=== PATIENT | male | born 1960 | race African-American/Black ===

== ENCOUNTER 2019-03-13 10:56 | Emergency (ER) | payer OTHER ==
[~2019-03-13] VITALS: Ht 172.7 cm; Wt 56.0 kg
[~2019-03-13 10:56] MED LIST: DIAZ5TAB4 PO; QUET25TA PO; RISP0.5T19 PO; TRAZ-251 PO
[2019-03-13 12:48] LABS: BASOPHILS % 0.9 % (0.0-2.0); EOSINOPHILS % 1.1 % (0.0-5.0); HEMATOCRIT. 36.1 % (42.0-52.0); HEMOGLOBIN. 12.3 g/dL (14.0-18.0); LYMPHOCYTES % 23.4 % (20.0-50.0); MEAN CORPUSCULAR HEMOGLOBIN 33.3 pg (28.0-32.0); MEAN CORPUSCULAR VOLUME 97.5 fL (80.0-94.0); MEAN PLATELET VOLUME 8.7 fl (7.4-10.4); MONOCYTES % 6.7 % (2.0-8.0); NEUTROPHILS % 67.9 % (40.0-76.0); PLATELET 175 x1000/uL (130-400); RED CELL DISTRIBUTION WIDTH 14.1 % (11.6-14.6)
[2019-03-13 12:55] LABS: CHLORIDE 112 mEq/L (98-107)
[2019-03-13 15:32] VITALS: BP 120/81
[2019-03-13] MEDS ORDERED: IOHEXOL-300 100 ML BOTTLE ONE (16:01)
== END 2019-03-13 19:22 | disposition home or self-care (01) ==
LOC: ER 10:56
DX: R22.1 Localized swelling, mass and lump, neck (principal); F31.9 Bipolar disorder, unspecified; F20.9 Schizophrenia, unspecified; Z79.899 Other long term (current) drug therapy
CPT/HCPCS: 36415; 70491; 80048; 85025; 99284; Q9967; Z7610

== ENCOUNTER 2019-07-31 12:05 | Inpatient (IN) | payer OTHER ==
[~2019-07-31] VITALS: Ht 175.3 cm; Wt 49.9 kg
[2019-07-31] MEDS ORDERED: SODIUM CHLORIDE 0.9% 1,000 ML IV ONE ×2 (12:30→13:24)
[2019-07-31] MEDS ORDERED: ONDANSETRON HCL 4MG/2ML INJ IV STA (12:30)
[2019-07-31 13:04] LABS: HEMATOCRIT. 30.7 % (42.0-52.0); HEMOGLOBIN. 9.9 g/dL (14.0-18.0); MEAN CORPUSCULAR HEMOGLOBIN 27.1 pg (28.0-32.0); MEAN CORPUSCULAR VOLUME 84.5 fL (80.0-94.0); MEAN PLATELET VOLUME 8.5 fl (7.4-10.4); PLATELET 287 x1000/uL (130-400); RED BLOOD CELL COUNT 3.63 mill/uL (4.7-6.1); RED CELL DISTRIBUTION WIDTH 17.2 % (11.6-14.6)
[2019-07-31 13:07] LABS: CHLORIDE 105 mEq/L (98-107)
[2019-07-31 13:22] LABS: INR 1.1; PROTHROMBIN TIME 11.9 sec (9.6-11.0)
[2019-07-31] MEDS ORDERED: VANCOMYCIN 1 G PREMIX 200 ML IV ONE (14:00)
[2019-07-31] MEDS ORDERED: PIPERACILLIN/TAZ 3.375G PREMIX 50 ML IV ONE (14:00)
[2019-07-31] MEDS: SODIUM CHLORIDE 0.45% 1,000 ML IV SCH (14:15)
[2019-07-31] MEDS ORDERED: ACETAMINOPHEN 325MG TABLET PO PRN (14:15)
[2019-07-31] MEDS ORDERED: IPRATROPIUM BROMIDE (0.02%) 0.5MG/2.5ML NEB HHN PRN (14:15)
[2019-07-31 14:23] LABS: NUCLEATED RED BLOOD CELLS 3 /100 WBC; PLATELET ESTIMATE NORMAL
[2019-07-31] MEDS: ONDANSETRON HCL 4MG/2ML INJ IV PRN (15:01)
[2019-07-31 16:15] VITALS: BP 104/72
[2019-07-31 17:56] VITALS: BP 104/72
[2019-07-31] MEDS: CEFTRIAXONE 1 G PREMIX 50 ML IV SCH (18:51)
[2019-07-31] MEDS: VISCOUS LIDOCAINE 2% 15 ML UDC MM PRN (20:02)
[2019-07-31 20:45] VITALS: BP 109/71
[2019-07-31] MEDS: QUETIAPINE FUMARATE 50MG TABLET PO SCH (22:46)
[2019-08-01 00:26] VITALS: BP 112/73
[2019-08-01] MEDS: SODIUM CHLORIDE 0.45% 1,000 ML IV SCH ×2 (02:38→16:55)
[2019-08-01] MEDS: ONDANSETRON HCL 4MG/2ML INJ IV PRN ×3 (03:02→19:02)
[2019-08-01] MEDS: VISCOUS LIDOCAINE 2% 15 ML UDC MM PRN ×2 (03:59→18:21)
[2019-08-01 04:00] VITALS: BP 100/58
[2019-08-01 06:43] LABS: CHLORIDE 111 mEq/L (98-107)
[2019-08-01 07:45] VITALS: BP 110/72
[2019-08-01] MEDS: QUETIAPINE FUMARATE 50MG TABLET PO SCH (08:09)
[2019-08-01 08:36] LABS: HEMATOCRIT. 27.9 % (42.0-52.0); MEAN CORPUSCULAR HEMOGLOBIN 27.4 pg (28.0-32.0); MEAN PLATELET VOLUME 9.1 fl (7.4-10.4); PLATELET 269 x1000/uL (130-400); RED BLOOD CELL COUNT 3.28 mill/uL (4.7-6.1); RED CELL DISTRIBUTION WIDTH 17.7 % (11.6-14.6)
[2019-08-01] MEDS ORDERED: BARIUM SULFATE 176 GM SUSP.RECON ONE (10:28)
[2019-08-01] MEDS ORDERED: POTASSIUM CHLORIDE INJ 40 MEQ in DEXT 5% WATER 250 ML IV NR (10:30)
[2019-08-01 10:59] LABS: NUCLEATED RED BLOOD CELLS 1 /100 WBC; PLATELET ESTIMATE NORMAL
[2019-08-01 15:35] LABS: CLARITY URINE CLEAR (CLEAR); COLOR URINE DK YELLOW (YELLOW); KETONES URINE TRACE (NEGATIVE); LEUKOCYTE ESTERASE URINE NEGATIVE (NEGATIVE); NITRITE URINE NEGATIVE (NEGATIVE); OCCULT BLOOD URINE NEGATIVE (NEGATIVE); PROTEIN URINE 2+ (NEGATIVE); SPECIFIC GRAVITY URINE 1.023 (1.005-1.030)
[2019-08-01 15:36] VITALS: BP 108/70
[2019-08-01 15:42] LABS: *AMPHETAMINES SCREEN URINE NEGATIVE (NEGATIVE); *BARBITURATES SCREEN URINE NEGATIVE (NEGATIVE); *BENZODIAZEPINES SCREEN URINE NEGATIVE (NEGATIVE); *COCAINE SCREEN URINE NEGATIVE (NEGATIVE); METHADONE URINE SCREEN NEGATIVE (NEGATIVE); OPIATES URINE SCREEN NEGATIVE (NEGATIVE)
[2019-08-01 15:43] LABS: CANNABINOID URINE SCREEN NEGATIVE (NEGATIVE); PHENCYCLIDINE URINE SCREEN NEGATIVE (NEGATIVE)
[2019-08-01] MEDS: CEFTRIAXONE 1 G PREMIX 50 ML IV SCH (17:51)
[2019-08-01 20:00] VITALS: BP 103/64
[2019-08-01] MEDS: PANTOPRAZOLE SODIUM 40 MG/VIAL IV SCH (21:42)
[2019-08-02] MEDS: MORPHINE SULFATE 2 MG/ML CPJ (NOT FOR IM USE) IV PRN ×2 (00:30→15:38)
[2019-08-02 00:46] VITALS: BP 105/69
[2019-08-02] MEDS: METRONIDAZOLE 500 MG PREMIX 100 ML IV SCH ×3 (03:08→18:32)
[2019-08-02] MEDS: DEXT 5% WATER + KCL 20MEQ/L 1,000 ML IV SCH ×3 (03:08→18:00)
[2019-08-02 04:00] VITALS: BP 107/67
[2019-08-02 06:55] LABS: HEMATOCRIT. 27.9 % (42.0-52.0); HEMOGLOBIN. 8.9 g/dL (14.0-18.0); MEAN CORPUSCULAR HEMOGLOBIN 27.2 pg (28.0-32.0); MEAN CORPUSCULAR VOLUME 85.7 fL (80.0-94.0); MEAN PLATELET VOLUME 9.6 fl (7.4-10.4); PLATELET 258 x1000/uL (130-400); RED BLOOD CELL COUNT 3.26 mill/uL (4.7-6.1); RED CELL DISTRIBUTION WIDTH 17.6 % (11.6-14.6)
[2019-08-02 07:26] LABS: FOLIC ACID (FOLATE) SERUM 7.7 ng/mL (>5.38)
[2019-08-02 07:58] LABS: CHLORIDE 115 mEq/L (98-107)
[2019-08-02 08:04] LABS: TOTAL IRON BINDING CAPACITY 146 ug/dL (250-450)
[2019-08-02 08:10] VITALS: BP 109/71
[2019-08-02] MEDS: DEXTROSE 5% WATER 1,000 ML IV SCH (08:41)
[2019-08-02] MEDS: QUETIAPINE FUMARATE 50MG TABLET PO SCH (08:41)
[2019-08-02] MEDS: PANTOPRAZOLE SODIUM 40 MG/VIAL IV SCH ×2 (08:48→20:58)
[2019-08-02] MEDS ORDERED: FENTANYL CITRATE/PF 50MCG/ML 2ML VIAL IV PRN (09:57)
[2019-08-02] MEDS ORDERED: MIDAZOLAM HCL 5 MG/5 ML VIAL IV PRN (09:57)
[2019-08-02] MEDS ORDERED: FENTANYL CITRATE/PF 50MCG/ML 2ML VIAL ONE (09:57)
[2019-08-02] MEDS ORDERED: MIDAZOLAM HCL 5 MG/5 ML VIAL ONE (09:57)
[2019-08-02] MEDS ORDERED: DIAZEPAM 5 MG/ML 2ML CPJ ONE ×2 (10:13→10:33)
[2019-08-02] MEDS ORDERED: DIPHENHYDRAMINE 50MG/ML VIAL ONE (10:24)
[2019-08-02] MEDS ORDERED: DIPHENHYDRAMINE 50MG/ML VIAL IV PRN (10:24)
[2019-08-02] MEDS ORDERED: DIAZEPAM 5 MG/ML 2ML CPJ IV PRN (10:33)
[2019-08-02 12:24] VITALS: BP 103/59
[2019-08-02] MEDS ORDERED: ONDANSETRON HCL 4MG/2ML INJ IV PRN ×2 (12:30)
[2019-08-02 12:59] LABS: PLATELET ESTIMATE NORMAL
[2019-08-02] MEDS: METOCLOPRAMIDE HCL 10MG/2ML VIAL IV SCH ×2 (13:24→18:35)
[2019-08-02 16:08] VITALS: BP 108/75
[2019-08-02] MEDS: CEFTRIAXONE 1 G PREMIX 50 ML IV SCH (16:13)
[2019-08-02] MEDS: SUCRALFATE 1 G/10 ML UDC GT SCH ×2 (17:22→20:58)
[2019-08-02] MEDS ORDERED: METOCLOPRAMIDE HCL 10MG/2ML VIAL IV SCH (18:00)
[2019-08-02] MEDS ORDERED: DIATR MEGLU/DIATRIZOATE SOLN 30ML PO SCH ×2 (18:00→18:15)
[2019-08-02 20:00] VITALS: BP 91/64
[2019-08-02] MEDS ORDERED: IOHEXOL-300 100 ML BOTTLE ONE (22:19)
[2019-08-03] VITALS: BP 92/58
[2019-08-03] MEDS: METOCLOPRAMIDE HCL 10MG/2ML VIAL IV SCH ×4 (01:07→17:07)
[2019-08-03] MEDS: DEXTROSE 5% WATER 1,000 ML IV SCH ×2 (01:08→17:08)
[2019-08-03] MEDS: METRONIDAZOLE 500 MG PREMIX 100 ML IV SCH ×3 (02:55→17:08)
[2019-08-03 04:00] VITALS: BP 98/64
[2019-08-03] MEDS: SUCRALFATE 1 G/10 ML UDC GT SCH ×4 (06:39→21:59)
[2019-08-03 07:36] LABS: CHLORIDE 110 mEq/L (98-107)
[2019-08-03 07:38] LABS: HEMATOCRIT. 27.1 % (42.0-52.0); HEMOGLOBIN. 8.8 g/dL (14.0-18.0); MEAN CORPUSCULAR HEMOGLOBIN 27.8 pg (28.0-32.0); MEAN CORPUSCULAR VOLUME 85.5 fL (80.0-94.0); MEAN PLATELET VOLUME 9.7 fl (7.4-10.4); PLATELET 217 x1000/uL (130-400); RED BLOOD CELL COUNT 3.17 mill/uL (4.7-6.1); RED CELL DISTRIBUTION WIDTH 17.1 % (11.6-14.6)
[2019-08-03 08:00] VITALS: BP 104/60
[2019-08-03] MEDS ORDERED: PANTOPRAZOLE SODIUM 40 MG/VIAL IV SCH (09:00)
[2019-08-03] MEDS: QUETIAPINE FUMARATE 50MG TABLET PO SCH (09:02)
[2019-08-03] MEDS: FAMOTIDINE 20MG/2ML VIAL IV SCH ×2 (09:02→21:59)
[2019-08-03 09:08] LABS: KAPPA LT CHAINS FREE SERUM 47.2 mg/L (3.3-19.4); KAPPA/LAMBDA RATIO 1.26 (0.26-1.65); LAMBDA LT CHAINS FREE SERUM 37.4 mg/L (5.7-26.3)
[2019-08-03 12:00] VITALS: BP 94/55
[2019-08-03] MEDS: CEFTRIAXONE 1 G PREMIX 50 ML IV SCH (13:49)
[2019-08-03 16:00] VITALS: BP 98/46
[2019-08-04] VITALS: BP 93/54
[2019-08-04] MEDS: METOCLOPRAMIDE HCL 10MG/2ML VIAL IV SCH ×4 (00:22→17:36)
[2019-08-04] MEDS: METRONIDAZOLE 500 MG PREMIX 100 ML IV SCH ×3 (02:36→17:37)
[2019-08-04 04:00] VITALS: BP 89/59
[2019-08-04 06:29] LABS: HEMATOCRIT. 25.8 % (42.0-52.0); HEMOGLOBIN. 8.3 g/dL (14.0-18.0); MEAN CORPUSCULAR HEMOGLOBIN 27.1 pg (28.0-32.0); MEAN CORPUSCULAR VOLUME 83.9 fL (80.0-94.0); MEAN PLATELET VOLUME 9.4 fl (7.4-10.4); PLATELET 215 x1000/uL (130-400); RED BLOOD CELL COUNT 3.08 mill/uL (4.7-6.1); RED CELL DISTRIBUTION WIDTH 17.3 % (11.6-14.6)
[2019-08-04] MEDS: SUCRALFATE 1 G/10 ML UDC GT SCH ×4 (06:34→21:10)
[2019-08-04 06:56] LABS: CHLORIDE 109 mEq/L (98-107)
[2019-08-04 08:00] VITALS: BP 90/50
[2019-08-04 08:55] LABS: ATYPICAL LYMPHOCYTES 1; NUCLEATED RED BLOOD CELLS 1 /100 WBC; PLATELET ESTIMATE NORMAL
[2019-08-04] MEDS: QUETIAPINE FUMARATE 50MG TABLET PO SCH (09:08)
[2019-08-04] MEDS: FAMOTIDINE 20MG/2ML VIAL IV SCH ×2 (09:08→21:10)
[2019-08-04] MEDS: DEXTROSE 5% WATER 1,000 ML IV SCH ×2 (09:09→17:38)
[2019-08-04 09:36] LABS: PLATELET ESTIMATE NORMAL
[2019-08-04 12:00] VITALS: BP 96/50
[2019-08-04] MEDS ORDERED: POTASSIUM CHLORIDE 20MEQ TABLET SR PO SCH (12:00)
[2019-08-04] MEDS ORDERED: POTASSIUM CHLORIDE INJ 40 MEQ in DEXT 5% WATER 250 ML IV SCH (13:00)
[2019-08-04] MEDS: CEFTRIAXONE 1 G PREMIX 50 ML IV SCH (13:01)
[2019-08-04] MEDS: MORPHINE SULFATE 2 MG/ML CPJ (NOT FOR IM USE) IV PRN (14:50)
[2019-08-04 16:00] VITALS: BP 98/47
[2019-08-04 20:00] VITALS: BP 94/54
[2019-08-05] VITALS: BP 87/52
[2019-08-05] MEDS: METOCLOPRAMIDE HCL 10MG/2ML VIAL IV SCH ×5 (00:58→23:00)
[2019-08-05] MEDS: METRONIDAZOLE 500 MG PREMIX 100 ML IV SCH ×3 (01:14→17:01)
[2019-08-05 04:00] VITALS: BP 88/55
[2019-08-05] MEDS: DEXTROSE 5% WATER 1,000 ML IV SCH (05:47)
[2019-08-05] MEDS: SUCRALFATE 1 G/10 ML UDC GT SCH ×4 (05:47→22:43)
[2019-08-05 07:46] LABS: CHLORIDE 108 mEq/L (98-107)
[2019-08-05 08:00] VITALS: BP 83/44
[2019-08-05 08:36] LABS: HEMOGLOBIN. 7.8 g/dL (14.0-18.0); MEAN CORPUSCULAR HEMOGLOBIN 27.4 pg (28.0-32.0); MEAN CORPUSCULAR VOLUME 84.1 fL (80.0-94.0); MEAN PLATELET VOLUME 9.2 fl (7.4-10.4); PLATELET 202 x1000/uL (130-400); RED BLOOD CELL COUNT 2.85 mill/uL (4.7-6.1); RED CELL DISTRIBUTION WIDTH 17.3 % (11.6-14.6)
[2019-08-05 09:06] LABS: A/G RATIO 0.5 (0.7-1.7); ALBUMIN 2.5 g/dL (2.9-4.4); ALPHA-1-GLOBULIN 0.6 g/dL (0.0-0.4); ALPHA-2-GLOBULIN 1.3 g/dL (0.4-1.0); BETA GLOBULIN 1.5 g/dL (0.7-1.3); GAMMA GLOBULINS 1.7 g/dL (0.4-1.8); GLOBULIN TOTAL 5.1 g/dL (2.2-3.9); M-SPIKE Not Observed g/dL (Not Observed); TOTAL PROTEIN SERUM 7.6 g/dL (6.0-8.5)
[2019-08-05] MEDS: QUETIAPINE FUMARATE 50MG TABLET PO SCH (10:15)
[2019-08-05] MEDS: FAMOTIDINE 20MG/2ML VIAL IV SCH ×2 (10:15→22:43)
[2019-08-05] MEDS ORDERED: POTASSIUM CHLORIDE 20MEQ TABLET SR PO NR (11:15)
[2019-08-05 12:00] VITALS: BP 90/58
[2019-08-05] MEDS: MIDODRINE HCL 5MG TABLET PO SCH ×3 (12:22→17:00)
[2019-08-05 13:06] LABS: BETA-2 MICROGLOBULIN SERUM 2.3 mg/L (0.6-2.4)
[2019-08-05 14:13] LABS: PLATELET ESTIMATE NORMAL
[2019-08-05] MEDS: CEFTRIAXONE 1 G PREMIX 50 ML IV SCH (14:21)
[2019-08-05 16:00] VITALS: BP 92/51
[2019-08-05 20:00] VITALS: BP 88/54
[2019-08-06] VITALS: BP 90/50
[2019-08-06] MEDS: METRONIDAZOLE 500MG TABLET PO SCH ×3 (02:59→18:18)
[2019-08-06 04:00] VITALS: BP 84/59
[2019-08-06] MEDS: METOCLOPRAMIDE HCL 10MG/2ML VIAL IV SCH ×3 (04:55→18:18)
[2019-08-06] MEDS: SUCRALFATE 1 G/10 ML UDC GT SCH ×4 (04:56→21:15)
[2019-08-06 06:03] LABS: CHLORIDE 105 mEq/L (98-107)
[2019-08-06 06:05] LABS: BASOPHILS % 0.5 % (0.0-2.0); HEMATOCRIT. 23.2 % (42.0-52.0); HEMOGLOBIN. 7.6 g/dL (14.0-18.0); MEAN CORPUSCULAR HEMOGLOBIN 27.2 pg (28.0-32.0); MEAN CORPUSCULAR VOLUME 83.3 fL (80.0-94.0); MEAN PLATELET VOLUME 9.5 fl (7.4-10.4); MONOCYTES % 11.1 % (2.0-8.0); NEUTROPHILS % 78.4 % (40.0-76.0); PLATELET 207 x1000/uL (130-400); RED BLOOD CELL COUNT 2.79 mill/uL (4.7-6.1); RED CELL DISTRIBUTION WIDTH 17.2 % (11.6-14.6)
[2019-08-06 08:00] VITALS: BP 88/50
[2019-08-06] MEDS ORDERED: POTASSIUM CHLORIDE 20MEQ TABLET SR PO NR (08:00)
[2019-08-06] MEDS: MIDODRINE HCL 5MG TABLET PO SCH ×4 (09:39→21:18)
[2019-08-06] MEDS: FAMOTIDINE 20MG/2ML VIAL IV SCH ×2 (09:39→21:16)
[2019-08-06] MEDS: QUETIAPINE FUMARATE 50MG TABLET PO SCH (09:40)
[2019-08-06 12:00] VITALS: BP 84/49
[2019-08-06] MEDS: CEFTRIAXONE 1 G PREMIX 50 ML IV SCH (13:05)
[2019-08-06 16:00] VITALS: BP 92/47
[2019-08-06 20:00] VITALS: BP 92/51
[2019-08-07] VITALS: BP 90/57
[2019-08-07] MEDS: METRONIDAZOLE 500MG TABLET PO SCH ×3 (02:12→17:37)
[2019-08-07] MEDS: METOCLOPRAMIDE HCL 10MG/2ML VIAL IV SCH ×5 (02:12→23:48)
[2019-08-07 04:00] VITALS: BP 90/51
[2019-08-07 06:21] LABS: CHLORIDE 104 mEq/L (98-107)
[2019-08-07 06:24] LABS: HEMATOCRIT. 23.2 % (42.0-52.0); HEMOGLOBIN. 7.5 g/dL (14.0-18.0); MEAN CORPUSCULAR VOLUME 82.9 fL (80.0-94.0); MEAN PLATELET VOLUME 9.9 fl (7.4-10.4); PLATELET 223 x1000/uL (130-400); RED BLOOD CELL COUNT 2.79 mill/uL (4.7-6.1); RED CELL DISTRIBUTION WIDTH 17.3 % (11.6-14.6)
[2019-08-07] MEDS: MIDODRINE HCL 5MG TABLET PO SCH ×3 (06:24→21:31)
[2019-08-07] MEDS: SUCRALFATE 1 G/10 ML UDC GT SCH ×4 (06:25→21:28)
[2019-08-07 08:00] VITALS: BP 160/68
[2019-08-07] MEDS: FAMOTIDINE 20MG/2ML VIAL IV SCH ×2 (08:35→21:28)
[2019-08-07] MEDS: THIAMINE HCL 100MG TABLET PO SCH (08:35)
[2019-08-07] MEDS: QUETIAPINE FUMARATE 50MG TABLET PO SCH (08:35)
[2019-08-07 08:57] LABS: PLATELET ESTIMATE NORMAL
[2019-08-07 12:00] VITALS: BP 109/68
[2019-08-07] MEDS ORDERED: POTASSIUM CHLORIDE 20MEQ TABLET SR PO NR (12:45)
[2019-08-07 16:00] VITALS: BP 90/52
[2019-08-07] MEDS: CEFTRIAXONE 1 G PREMIX 50 ML IV SCH (19:01)
[2019-08-07 20:00] VITALS: BP 88/54
[2019-08-08] VITALS: BP 100/54
[2019-08-08 04:00] VITALS: BP 100/51
[2019-08-08] MEDS: MIDODRINE HCL 5MG TABLET PO SCH ×3 (06:00→21:22)
[2019-08-08] MEDS: SUCRALFATE 1 G/10 ML UDC GT SCH ×4 (06:00→21:22)
[2019-08-08] MEDS: METOCLOPRAMIDE HCL 10MG/2ML VIAL IV SCH ×4 (06:00→23:53)
[2019-08-08 08:00] VITALS: BP 94/58
[2019-08-08] MEDS: FAMOTIDINE 20MG/2ML VIAL IV SCH ×2 (09:27→21:22)
[2019-08-08] MEDS: POTASSIUM CHLORIDE 20MEQ TABLET SR PO SCH (09:27)
[2019-08-08] MEDS: QUETIAPINE FUMARATE 50MG TABLET PO SCH (09:27)
[2019-08-08] MEDS: THIAMINE HCL 100MG TABLET PO SCH (09:28)
[2019-08-08 12:00] VITALS: BP 92/56
[2019-08-08] MEDS ORDERED: HYDR-4001 MT (12:02)
[2019-08-08] MEDS ORDERED: SUCR1ORA15 GT (12:02)
[2019-08-08] MEDS ORDERED: METO-293 MT (12:02)
[2019-08-08] MEDS ORDERED: MIDO5TAB4 PO (12:02)
[2019-08-08] MEDS ORDERED: OMEP20TA2 MT (12:02)
[2019-08-08 16:00] VITALS: BP 86/57
[2019-08-08 20:00] VITALS: BP 89/57
[2019-08-09] VITALS: BP 95/62
[2019-08-09 04:00] VITALS: BP 88/49
[2019-08-09] MEDS: METOCLOPRAMIDE HCL 10MG/2ML VIAL IV SCH ×3 (05:13→18:32)
[2019-08-09] MEDS: MIDODRINE HCL 5MG TABLET PO SCH ×2 (05:14→21:18)
[2019-08-09] MEDS: SUCRALFATE 1 G/10 ML UDC GT SCH ×4 (05:50→20:39)
[2019-08-09 08:00] VITALS: BP 92/62
[2019-08-09] MEDS: POTASSIUM CHLORIDE 20MEQ TABLET SR PO SCH (10:05)
[2019-08-09] MEDS: QUETIAPINE FUMARATE 50MG TABLET PO SCH (10:06)
[2019-08-09] MEDS: FAMOTIDINE 20MG/2ML VIAL IV SCH ×2 (10:06→20:40)
[2019-08-09] MEDS: THIAMINE HCL 100MG TABLET PO SCH (10:06)
[2019-08-09 12:00] VITALS: BP 92/54
[2019-08-09] MEDS ORDERED: MIDO10TA MT (12:22)
[2019-08-09] MEDS ORDERED: MIDODRINE HCL 5MG TABLET PO SCH (14:00)
[2019-08-09 16:00] VITALS: BP 82/45
[2019-08-09] MEDS ORDERED: SODIUM CHLORIDE 0.9% 500 ML IV ONE (16:00)
[2019-08-09 18:18] LABS: HEPATITIS B SURFACE ANTIGEN NEGATIVE
[2019-08-09] MEDS ORDERED: SODIUM CHLORIDE 0.9% 250 ML IV ONE (19:00)
[2019-08-09 20:00] VITALS: BP 87/56
[2019-08-10] VITALS: BP 88/56
[2019-08-10] MEDS: METOCLOPRAMIDE HCL 10MG/2ML VIAL IV SCH ×5 (01:08→23:04)
[2019-08-10] MEDS ORDERED: SODIUM CHLORIDE 0.9% 1,000 ML IV SCH (01:30)
[2019-08-10 04:00] VITALS: BP 101/64
[2019-08-10] MEDS: MIDODRINE HCL 5MG TABLET PO SCH ×3 (05:24→21:15)
[2019-08-10] MEDS: SUCRALFATE 1 G/10 ML UDC GT SCH ×4 (05:57→21:16)
[2019-08-10 08:00] VITALS: BP 100/65
[2019-08-10] MEDS: FAMOTIDINE 20MG/2ML VIAL IV SCH ×2 (09:56→21:16)
[2019-08-10] MEDS: THIAMINE HCL 100MG TABLET PO SCH (09:56)
[2019-08-10] MEDS: POTASSIUM CHLORIDE 20MEQ TABLET SR PO SCH (09:56)
[2019-08-10] MEDS: QUETIAPINE FUMARATE 50MG TABLET PO SCH (09:57)
[2019-08-10 12:00] VITALS: BP 83/44
[2019-08-10] MEDS ORDERED: SODIUM CHLORIDE 0.9% 1,000 ML IV ONE (12:00)
[2019-08-10 16:00] VITALS: BP 103/63
[2019-08-10 20:18] VITALS: BP 89/56
[2019-08-11 00:38] VITALS: BP 88/56
[2019-08-11 04:13] VITALS: BP 95/57
[2019-08-11] MEDS: MIDODRINE HCL 5MG TABLET PO SCH ×3 (05:41→21:37)
[2019-08-11] MEDS: METOCLOPRAMIDE HCL 10MG/2ML VIAL IV SCH ×3 (05:41→18:31)
[2019-08-11] MEDS: SUCRALFATE 1 G/10 ML UDC GT SCH ×4 (05:48→21:36)
[2019-08-11 08:00] VITALS: BP 91/50
[2019-08-11] MEDS: FAMOTIDINE 20MG/2ML VIAL IV SCH ×2 (09:44→21:36)
[2019-08-11] MEDS: THIAMINE HCL 100MG TABLET PO SCH (09:44)
[2019-08-11] MEDS: QUETIAPINE FUMARATE 50MG TABLET PO SCH (09:44)
[2019-08-11] MEDS: POTASSIUM CHLORIDE 20MEQ TABLET SR PO SCH (09:44)
[2019-08-11] MEDS ORDERED: MIDO10TA MT (11:24)
[2019-08-11 12:00] VITALS: BP 94/55
[2019-08-11 16:00] VITALS: BP 97/59
[2019-08-11 20:00] VITALS: BP 88/59
[2019-08-12] VITALS: BP_SYST 131; BP_SYST 95; BP_DIAS 61; BP_DIAS 71
[2019-08-12] MEDS: METOCLOPRAMIDE HCL 10MG/2ML VIAL IV SCH ×3 (00:59→14:31)
[2019-08-12 04:00] VITALS: BP 98/63
[2019-08-12] MEDS: SUCRALFATE 1 G/10 ML UDC GT SCH ×2 (05:57→14:31)
[2019-08-12] MEDS: MIDODRINE HCL 5MG TABLET PO SCH ×2 (05:58→14:32)
[2019-08-12 08:00] VITALS: BP 112/69
[2019-08-12] MEDS: FAMOTIDINE 20MG/2ML VIAL IV SCH (09:59)
[2019-08-12] MEDS: THIAMINE HCL 100MG TABLET PO SCH (09:59)
[2019-08-12] MEDS: QUETIAPINE FUMARATE 50MG TABLET PO SCH (09:59)
[2019-08-12] MEDS: POTASSIUM CHLORIDE 20MEQ TABLET SR PO SCH (10:00)
[2019-08-12 13:49] VITALS: BP 92/59
== END 2019-08-12 16:10 | disposition home health service (06) | DRG 720 ==
LOC: ER 12:05 → 6WST 13:47 → EDBEDREQSVC 13:49 → EDBEDREQ 13:49 → EDBEDREQTM 13:49 → ENRESERV 13:54 → 5WST 08-01 11:12
PROVIDERS: ADMIT Internal Medicine; ATTEND Internal Medicine
PROC: 0DH63UZ Insertion of Feeding Device into Stomach, Percutaneous Approach (ICD-10-PCS; principal; 2019-08-02)
PROC: 0DB98ZX Excision of Duodenum, Via Natural or Artificial Opening Endoscopic, Diagnostic (ICD-10-PCS; 2019-08-02)
PROC: 0DB78ZX Excision of Stomach, Pylorus, Via Natural or Artificial Opening Endoscopic, Diagnostic (ICD-10-PCS; 2019-08-02)
DX: A41.9 Sepsis, unspecified organism (principal); E87.2 Acidosis; D70.1 Agranulocytosis secondary to cancer chemotherapy; E44.0 Moderate protein-calorie malnutrition; R13.10 Dysphagia, unspecified; F20.9 Schizophrenia, unspecified; N28.1 Cyst of kidney, acquired; Z78.1 Physical restraint status; C76.0 Malignant neoplasm of head, face and neck; Z93.1 Gastrostomy status; D50.9 Iron deficiency anemia, unspecified; F17.210 Nicotine dependence, cigarettes, uncomplicated; F31.9 Bipolar disorder, unspecified; J44.9 Chronic obstructive pulmonary disease, unspecified; K29.70 Gastritis, unspecified, without bleeding; K29.80 Duodenitis without bleeding; T45.1X5A Adverse effect of antineoplastic and immunosuppressive drugs, initial encounter; R47.02 Dysphasia; D18.03 Hemangioma of intra-abdominal structures; Z92.3 Personal history of irradiation; Z79.899 Other long term (current) drug therapy; Z72.89 Other problems related to lifestyle; Z68.1 Body mass index [BMI] 19.9 or less, adult; Z51.0 Encounter for antineoplastic radiation therapy; Y92.89 Other specified places as the place of occurrence of the external cause
CPT/HCPCS: 36415; 71045; 74018; 74177; 74220; 76700; 80048; 80053; 80305; 81003; 82105; 82232; 82378; 82607; 82728; 82746; 82784; 82785; 83540; 83550; 83605; 83615; 83735; 83883; 84132; 84145; 84155; 84165; 84484; 85025; 86334; 86335; 88305; 88313; 92610; 93005; 93306; 97110; 97116; 97162; 97166; 97530; 99291; C9113; J0696; J1200; J2250; J2270; J2405; J2543; J2765; J3010; J3370; J3480; J3490; J7030; J7060; J7070; Q9963; Q9967